=== PATIENT | female | born 1955 | race Caucasian/White ===

== ENCOUNTER 2020-01-21 15:33 | Inpatient (IN) | payer MEDICAID ==
[~2020-01-21] VITALS: Ht 172.7 cm; Wt 64.3 kg
[2020-01-21] MEDS: K and/or MAG REPLACEMENT MC SCH ×2 (06:00→08:00)
[~2020-01-21 15:33] MED LIST: BACL20TA84 PO
[2020-01-21 17:28] LABS: BASOPHILS % (AUTO) 0.3 % (0-1); EOSINOPHILS % (AUTO) 0.5 % (0-6); HEMATOCRIT 38.6 % (35.0-45.0); HEMOGLOBIN 12.7 g/dl (12.0-16.0); LYMPHOCYTES # (AUTO) 0.6 X10'3 (1.1-4.8); LYMPHOCYTES % (AUTO) 13.9 % (21-51); MEAN CORPUSCULAR HEMOGLOBIN 34.5 PG (27.0-31.0); MEAN CORPUSCULAR HGB CONC 32.9 g/dL (33.0-36.5); MEAN CORPUSCULAR VOLUME 104.8 FL (78-98); MEAN PLATELET VOLUME 8.8 FL (7.4-10.4); MONOCYTES # (AUTO) 0.3 X10'3 (0-0.9); MONOCYTES % (AUTO) 7.8 % (2-12); NEUTROPHILS # (AUTO) 3.2 X10'3 (1.8-7.7); NEUTROPHILS % (AUTO) 77.5 % (42-75); PARTIAL THROMBOPLASTIN TIME 30 SECONDS (22-32); PLATELET COUNT 82 X10'3 (140-440); RED BLOOD COUNT 3.69 X10'6 (4.20-5.60); RED CELL DISTRIBUTION WIDTH 14.2 % (11.5-14.5); WHITE BLOOD COUNT 4.1 X10'3 (4.5-11.0)
[2020-01-21 17:45] LABS: ALANINE AMINOTRANSFERASE 20 U/L (12-78); ALBUMIN 2.8 G/DL (3.4-5.0); ALBUMIN/GLOBULIN RATIO 0.8 (1.1-1.5); ALKALINE PHOSPHATASE 85 IU/L (46-116); ANION GAP 3 (8-16); ASPARTATE AMINO TRANSFERASE 36 U/L (10-37); BILIRUBIN,TOTAL 0.6 MG/DL (0.1-1.0); BLOOD UREA NITROGEN 5 MG/DL (7-18); BUN/CREATININE RATIO 6.6 (6.6-38.0); CALCIUM 7.8 MG/DL (8.5-10.1); CHLORIDE 88 MMOL/L (99-107); CREATININE 0.76 MG/DL (0.40-0.90); GLUCOSE 99 MG/DL (70-104); POTASSIUM 3.5 MMOL/L (3.5-5.1); SODIUM 126 MMOL/L (135-145); TOTAL CARBON DIOXIDE 35.3 MMOL/L (24-32); TOTAL PROTEIN 6.1 G/DL (6.4-8.2); eGFR 77 ML/MIN
--- NOTE | 2020-01-21 18:24 | NUR ---
pt in fast track for vascular study.
--- NOTE | 2020-01-21 19:00 | NUR ---
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
--- NOTE | 2020-01-21 19:20 | NUR ---
pt daughter leave phone no lft to call if pt is d/c home call [phone] michael.
[2020-01-21] MEDS ORDERED: HYDR200T84 PO (22:06)
[2020-01-21] MEDS ORDERED: TIOT4MIS2 (22:06)
[2020-01-21] MEDS ORDERED: DOXE10CA3 PO (22:06)
[2020-01-21] MEDS ORDERED: ALBU2.5V13 INH (22:06)
[2020-01-21] MEDS ORDERED: PROP40TA72 PO (22:06)
[2020-01-21] MEDS ORDERED: magnesium hydroxide 30ml (MOM) UD suspension PO PRN (22:40)
[2020-01-21] MEDS ORDERED: ondansetron/PF 4mg/2ml inj IV PRN (22:40)
[2020-01-21] MEDS ORDERED: mag hydrox/Alum hydrox/simeth 30ml oral suspension PO PRN (22:40)
[2020-01-21] MEDS ORDERED: potassium CL 10mEq/100ml bag 100 ML IV PRN (22:45)
[2020-01-21] MEDS ORDERED: potassium Cl 20 mEq SR tablet PO PRN (22:45)
[2020-01-21] MEDS ORDERED: magnesium 4gm in 100ml NS 100 ML IV PRN (22:45)
[2020-01-21 23:17] LABS: HEMOGLOBIN A1C 5.6 % (4.5-6.2)
--- NOTE | 2020-01-21 23:29 | NUR ---
Patient in room ED HALL10. I have received report from NET LEAD ARCHITECT and had the opportunity to ask questions and assume patient care.
[2020-01-21 23:45] VITALS: BP 160/75
--- NOTE | 2020-01-22 00:07 | NUR ---
pt complaining of SOB, Jaja ordered albuterol breathing treatments and if pt symptoms are unrelieved to give lasix am dose early.
[2020-01-22] MEDS: albuterol 2.5 MG/3 ML nebule NEB PRN ×3 (00:21→09:24)
[2020-01-22 02:00] VITALS: BP 151/75
[2020-01-22 06:00] VITALS: BP 115/64
--- NOTE | 2020-01-22 06:30 | NUR ---
Patient in room MED 312. I have received report from Kathy ROGERS and had the opportunity to ask questions and assume patient care.
[2020-01-22 06:32] LABS: BASOPHILS % (AUTO) 0.2 % (0-1); EOSINOPHILS % (AUTO) 0.6 % (0-6); HEMATOCRIT 42.2 % (35.0-45.0); HEMOGLOBIN 13.5 g/dl (12.0-16.0); LYMPHOCYTES # (AUTO) 0.7 X10'3 (1.1-4.8); LYMPHOCYTES % (AUTO) 12.4 % (21-51); MEAN CORPUSCULAR HEMOGLOBIN 34.3 PG (27.0-31.0); MEAN CORPUSCULAR VOLUME 107.2 FL (78-98); MEAN PLATELET VOLUME 9.3 FL (7.4-10.4); MONOCYTES # (AUTO) 0.3 X10'3 (0-0.9); MONOCYTES % (AUTO) 4.8 % (2-12); NEUTROPHILS # (AUTO) 4.4 X10'3 (1.8-7.7); PLATELET COUNT 69 X10'3 (140-440); RED BLOOD COUNT 3.94 X10'6 (4.20-5.60); RED CELL DISTRIBUTION WIDTH 13.8 % (11.5-14.5); WHITE BLOOD COUNT 5.3 X10'3 (4.5-11.0)
[2020-01-22 06:38] LABS: ALANINE AMINOTRANSFERASE 20 U/L (12-78); ALBUMIN 2.8 G/DL (3.4-5.0); ALBUMIN/GLOBULIN RATIO 0.8 (1.1-1.5); ALKALINE PHOSPHATASE 82 IU/L (46-116); ANION GAP 7 (8-16); ASPARTATE AMINO TRANSFERASE 35 U/L (10-37); BILIRUBIN,TOTAL 0.6 MG/DL (0.1-1.0); BLOOD UREA NITROGEN 5 MG/DL (7-18); BUN/CREATININE RATIO 8.2 (6.6-38.0); CALCIUM 7.7 MG/DL (8.5-10.1); CHLORIDE 91 MMOL/L (99-107); CREATININE 0.61 MG/DL (0.40-0.90); GLUCOSE 93 MG/DL (70-104); POTASSIUM 3.3 MMOL/L (3.5-5.1); SODIUM 132 MMOL/L (135-145); TOTAL CARBON DIOXIDE 34.4 MMOL/L (24-32); TOTAL PROTEIN 6.3 G/DL (6.4-8.2); eGFR > 90 ML/MIN
--- NOTE | 2020-01-22 06:45 | NUR ---
Problems reprioritized. Patient report given, questions answered & plan of care reviewed with MALIK ROGERS.
[2020-01-22 06:49] LABS: CHOL/HDL RATIO 2.2 (0.00-4.99); CHOLESTEROL 82 MG/DL (0-200); HDL CHOLESTEROL 37 MG/DL (35-60); LDL CHOLESTEROL 28 MG/DL (50-100); MAGNESIUM 1.6 MG/DL (1.5-2.4); TRIGLYCERIDES 81 MG/DL (20-135)
[2020-01-22] MEDS ORDERED: furosemide 20 MG/2 ML vial IV SCH (08:00)
[2020-01-22] MEDS ORDERED: heparin, porcine 5000 units/ml vial SQ SCH (08:00)
[2020-01-22] MEDS: K and/or MAG REPLACEMENT MC SCH ×2 (08:00→20:00)
[2020-01-22] MEDS: carVEDilol 3.125mg tablet PO SCH ×2 (08:00→20:54)
[2020-01-22 11:00] VITALS: BP 149/71
[2020-01-22] MEDS: albuterol 2.5 MG/3 ML nebule NEB SCH ×4 (13:34→23:17)
[2020-01-22 15:00] VITALS: BP 117/68
[2020-01-22] MEDS: potassium Cl 20 mEq SR tablet PO PRN ×2 (15:08→20:53)
[2020-01-22 18:00] VITALS: BP 142/80
--- NOTE | 2020-01-22 18:25 | NUR ---
Patient in room MED 312. I have received report from MALIK ROGERS and had the opportunity to ask questions and assume patient care.
[2020-01-22] MEDS: acetaminophen 325mg tablet PO PRN (20:53)
[2020-01-22] MEDS: hydroxychloroquine 200mg tablet PO SCH (20:54)
[2020-01-22] MEDS: doxepin 10mg capsule PO SCH (20:55)
[2020-01-22] MEDS: furosemide 40mg/4ml inj IV SCH (20:55)
[2020-01-22 22:39] VITALS: BP 104/57
[2020-01-23 02:45] VITALS: BP 107/57
[2020-01-23 03:09] LABS: BASOPHILS % (AUTO) 0.3 % (0-1); EOSINOPHILS % (AUTO) 1.3 % (0-6); HEMOGLOBIN 12.3 g/dl (12.0-16.0); LYMPHOCYTES # (AUTO) 0.7 X10'3 (1.1-4.8); LYMPHOCYTES % (AUTO) 20.4 % (21-51); MEAN CORPUSCULAR HEMOGLOBIN 34.2 PG (27.0-31.0); MEAN CORPUSCULAR HGB CONC 32.4 g/dL (33.0-36.5); MEAN CORPUSCULAR VOLUME 105.7 FL (78-98); MEAN PLATELET VOLUME 9.3 FL (7.4-10.4); MONOCYTES # (AUTO) 0.2 X10'3 (0-0.9); MONOCYTES % (AUTO) 4.8 % (2-12); NEUTROPHILS # (AUTO) 2.5 X10'3 (1.8-7.7); NEUTROPHILS % (AUTO) 73.2 % (42-75); PLATELET COUNT 65 X10'3 (140-440); RED BLOOD COUNT 3.59 X10'6 (4.20-5.60); RED CELL DISTRIBUTION WIDTH 14.3 % (11.5-14.5); WHITE BLOOD COUNT 3.4 X10'3 (4.5-11.0)
[2020-01-23 03:30] LABS: ALANINE AMINOTRANSFERASE 20 U/L (12-78); ALBUMIN 2.6 G/DL (3.4-5.0); ALBUMIN/GLOBULIN RATIO 0.8 (1.1-1.5); ALKALINE PHOSPHATASE 72 IU/L (46-116); ANION GAP 2 (8-16); ASPARTATE AMINO TRANSFERASE 32 U/L (10-37); BILIRUBIN,TOTAL 0.5 MG/DL (0.1-1.0); BLOOD UREA NITROGEN 4 MG/DL (7-18); BUN/CREATININE RATIO 5.2 (6.6-38.0); CALCIUM 7.6 MG/DL (8.5-10.1); CHLORIDE 96 MMOL/L (99-107); CREATININE 0.77 MG/DL (0.40-0.90); GLUCOSE 91 MG/DL (70-104); MAGNESIUM 1.2 MG/DL (1.5-2.4); POTASSIUM 3.5 MMOL/L (3.5-5.1); SODIUM 139 MMOL/L (135-145); TOTAL PROTEIN 5.9 G/DL (6.4-8.2); eGFR 76 ML/MIN
--- NOTE | 2020-01-23 03:39 | NUR ---
RENE JAFFE "PAGER ID: [phone] MESSAGE: PT MAYNOR HAD A CRITICAL CO2 OF 41"
[2020-01-23] MEDS: albuterol 2.5 MG/3 ML nebule NEB SCH ×6 (03:47→23:33)
[2020-01-23 06:00] VITALS: BP 123/52
--- NOTE | 2020-01-23 06:20 | NUR ---
Problems reprioritized. Patient report given, questions answered & plan of care reviewed with MALIK ROGERS.
[2020-01-23] MEDS ORDERED: PROPRANOLOL HCL 40 MG PO SCH (08:00)
[2020-01-23] MEDS: carVEDilol 3.125mg tablet PO SCH ×2 (08:39→20:39)
[2020-01-23] MEDS: aspirin 81mg tablet.DR PO SCH (08:40)
[2020-01-23] MEDS: lisinopril 5mg tablet PO SCH (08:40)
[2020-01-23] MEDS: hydroxychloroquine 200mg tablet PO SCH ×2 (08:40→20:40)
[2020-01-23] MEDS: magnesium Cl slow-release 64mg tablet PO PRN (08:41)
[2020-01-23] MEDS: furosemide 40mg/4ml inj IV SCH ×2 (08:43→20:39)
[2020-01-23] MEDS: K and/or MAG REPLACEMENT MC SCH ×2 (08:48→20:00)
[2020-01-23 10:00] VITALS: BP 119/59
[2020-01-23] MEDS ORDERED: thiamine inj. 100 MG in normal saline 100ml IV soln 100 ML IV ONE (11:45)
--- NOTE | 2020-01-23 14:59 | NUR ---
NOTIFIED PAGER ID: [phone] MESSAGE: [phone] ÁNGEL MCGUIRE. ABDOMENAL ULTRASOUND HAS RESULTED. OKAY TO FEED PATIENT? EXT [id number]
[2020-01-23 15:00] VITALS: BP 114/56
[2020-01-23 18:00] VITALS: BP 117/50
--- NOTE | 2020-01-23 19:03 | NUR ---
Patient in room MED 312. I have received report from Heather ROGERS and had the opportunity to ask questions and assume patient care.
[2020-01-23] MEDS: doxepin 10mg capsule PO SCH (20:39)
[2020-01-23 22:00] VITALS: BP 105/58
[2020-01-24] MEDS: magnesium Cl slow-release 64mg tablet PO PRN ×3 (00:16→20:42)
[2020-01-24 02:00] VITALS: BP 122/61
[2020-01-24] MEDS: albuterol 2.5 MG/3 ML nebule NEB SCH ×6 (03:03→23:23)
[2020-01-24 05:24] LABS: BASOPHILS % (AUTO) 0.3 % (0-1); EOSINOPHILS # (AUTO) 0.1 X10'3 (0-0.9); EOSINOPHILS % (AUTO) 2.3 % (0-6); HEMATOCRIT 35.1 % (35.0-45.0); HEMOGLOBIN 11.4 g/dl (12.0-16.0); LYMPHOCYTES # (AUTO) 0.8 X10'3 (1.1-4.8); LYMPHOCYTES % (AUTO) 22.2 % (21-51); MEAN CORPUSCULAR HEMOGLOBIN 34.3 PG (27.0-31.0); MEAN CORPUSCULAR HGB CONC 32.4 g/dL (33.0-36.5); MEAN CORPUSCULAR VOLUME 106.1 FL (78-98); MEAN PLATELET VOLUME 9.2 FL (7.4-10.4); MONOCYTES # (AUTO) 0.3 X10'3 (0-0.9); MONOCYTES % (AUTO) 8.1 % (2-12); NEUTROPHILS # (AUTO) 2.4 X10'3 (1.8-7.7); NEUTROPHILS % (AUTO) 67.1 % (42-75); PLATELET COUNT 68 X10'3 (140-440); RED BLOOD COUNT 3.31 X10'6 (4.20-5.60); RED CELL DISTRIBUTION WIDTH 14.3 % (11.5-14.5); WHITE BLOOD COUNT 3.6 X10'3 (4.5-11.0)
[2020-01-24 05:39] LABS: ALANINE AMINOTRANSFERASE 15 U/L (12-78); ALBUMIN 2.4 G/DL (3.4-5.0); ALBUMIN/GLOBULIN RATIO 0.8 (1.1-1.5); ALKALINE PHOSPHATASE 61 IU/L (46-116); AMYLASE 42 U/L (25-115); ASPARTATE AMINO TRANSFERASE 27 U/L (10-37); BILIRUBIN,TOTAL 0.5 MG/DL (0.1-1.0); BLOOD UREA NITROGEN 7 MG/DL (7-18); BUN/CREATININE RATIO 9.1 (6.6-38.0); CALCIUM 7.8 MG/DL (8.5-10.1); CHLORIDE 97 MMOL/L (99-107); CREATININE 0.77 MG/DL (0.40-0.90); GLUCOSE 94 MG/DL (70-104); LIPASE 128 U/L (73-393); MAGNESIUM 1.1 MG/DL (1.5-2.4); PHOSPHORUS 3.1 MG/DL (2.3-4.5); POTASSIUM 3.5 MMOL/L (3.5-5.1); SODIUM 142 MMOL/L (135-145); TOTAL PROTEIN 5.6 G/DL (6.4-8.2); eGFR 76 ML/MIN
[2020-01-24 05:52] LABS: ANION GAP -1 (8-16)
[2020-01-24 05:56] LABS: TOTAL CARBON DIOXIDE 45.6 MMOL/L (24-32)
[2020-01-24 06:00] VITALS: BP 103/53
--- NOTE | 2020-01-24 07:45 | NUR ---
Problems reprioritized. Patient report given, questions answered & plan of care reviewed with Heather ROGERS.
[2020-01-24] MEDS ORDERED: folic acid inj. 2 MG, thiamine inj. 100 MG, MVI, adult No.4 with vit. K 10 ML in dextro... IV SCH ×4 (08:00)
[2020-01-24] MEDS: K and/or MAG REPLACEMENT MC SCH ×2 (08:00→20:54)
[2020-01-24] MEDS: carVEDilol 3.125mg tablet PO SCH ×2 (08:20→20:42)
[2020-01-24] MEDS: furosemide 40mg/4ml inj IV SCH ×2 (08:21→20:41)
[2020-01-24] MEDS: hydroxychloroquine 200mg tablet PO SCH ×2 (08:21→20:42)
[2020-01-24] MEDS: aspirin 81mg tablet.DR PO SCH (08:21)
[2020-01-24] MEDS: lisinopril 5mg tablet PO SCH (08:21)
--- NOTE | 2020-01-24 08:51 | NUR ---
Patient refused IV magnesium (1.2) She wants pills
[2020-01-24 11:00] VITALS: BP 93/55
[2020-01-24] MEDS: folic acid 1mg tablet PO SCH (11:12)
[2020-01-24] MEDS: thiamine 100mg tablet PO SCH (11:13)
[2020-01-24 15:00] VITALS: BP 96/56
[2020-01-24 18:00] VITALS: BP 123/57
--- NOTE | 2020-01-24 18:00 | NUR ---
Patient in room MED 312. I have received report from Heather ROGERS and had the opportunity to ask questions and assume patient care.
--- NOTE | 2020-01-24 18:40 | NUR ---
Problems reprioritized. Patient report given, questions answered & plan of care reviewed with Gwen ROGERS.
[2020-01-24] MEDS: doxepin 10mg capsule PO SCH (20:42)
[2020-01-24 22:00] VITALS: BP 125/54
[2020-01-24] MEDS: acetaminophen 325mg tablet PO PRN (22:42)
[2020-01-25 02:00] VITALS: BP 88/49
[2020-01-25] MEDS: albuterol 2.5 MG/3 ML nebule NEB SCH ×6 (03:32→23:09)
[2020-01-25 05:12] LABS: BASOPHILS % (AUTO) 0.2 % (0-1); EOSINOPHILS # (AUTO) 0.1 X10'3 (0-0.9); EOSINOPHILS % (AUTO) 3.1 % (0-6); HEMATOCRIT 35.4 % (35.0-45.0); HEMOGLOBIN 11.4 g/dl (12.0-16.0); LYMPHOCYTES # (AUTO) 0.9 X10'3 (1.1-4.8); LYMPHOCYTES % (AUTO) 26.4 % (21-51); MEAN CORPUSCULAR HEMOGLOBIN 34.2 PG (27.0-31.0); MEAN CORPUSCULAR HGB CONC 32.3 g/dL (33.0-36.5); MEAN CORPUSCULAR VOLUME 105.8 FL (78-98); MEAN PLATELET VOLUME 8.5 FL (7.4-10.4); MONOCYTES # (AUTO) 0.3 X10'3 (0-0.9); MONOCYTES % (AUTO) 8.1 % (2-12); NEUTROPHILS # (AUTO) 2.2 X10'3 (1.8-7.7); NEUTROPHILS % (AUTO) 62.2 % (42-75); PLATELET COUNT 72 X10'3 (140-440); RED BLOOD COUNT 3.34 X10'6 (4.20-5.60); RED CELL DISTRIBUTION WIDTH 14.6 % (11.5-14.5); WHITE BLOOD COUNT 3.5 X10'3 (4.5-11.0)
[2020-01-25 05:52] LABS: ALANINE AMINOTRANSFERASE 15 U/L (12-78); ALBUMIN 2.4 G/DL (3.4-5.0); ALBUMIN/GLOBULIN RATIO 0.7 (1.1-1.5); ALKALINE PHOSPHATASE 56 IU/L (46-116); AMYLASE 44 U/L (25-115); ASPARTATE AMINO TRANSFERASE 21 U/L (10-37); BILIRUBIN,TOTAL 0.5 MG/DL (0.1-1.0); BLOOD UREA NITROGEN 8 MG/DL (7-18); BUN/CREATININE RATIO 11.9 (6.6-38.0); CALCIUM 7.7 MG/DL (8.5-10.1); CHLORIDE 96 MMOL/L (99-107); CREATININE 0.67 MG/DL (0.40-0.90); GLUCOSE 104 MG/DL (70-104); LIPASE 95 U/L (73-393); MAGNESIUM 1.3 MG/DL (1.5-2.4); PHOSPHORUS 3.5 MG/DL (2.3-4.5); POTASSIUM 3.3 MMOL/L (3.5-5.1); SODIUM 142 MMOL/L (135-145); TOTAL PROTEIN 5.7 G/DL (6.4-8.2); eGFR 89 ML/MIN
[2020-01-25 06:00] VITALS: BP 139/67
[2020-01-25 06:06] LABS: ANION GAP 2 (8-16)
[2020-01-25 06:10] LABS: TOTAL CARBON DIOXIDE 44.4 MMOL/L (24-32)
--- NOTE | 2020-01-25 07:02 | NUR ---
Patient in room MED 312. I have received report from SUE Hidalgo and had the opportunity to ask questions and assume patient care.
[2020-01-25] MEDS ORDERED: thiamine 100mg tablet PO SCH (08:00)
[2020-01-25] MEDS ORDERED: folic acid 1mg tablet PO SCH (08:00)
[2020-01-25] MEDS: K and/or MAG REPLACEMENT MC SCH ×2 (08:29→20:38)
[2020-01-25] MEDS: carVEDilol 3.125mg tablet PO SCH ×2 (08:34→20:35)
[2020-01-25] MEDS: aspirin 81mg tablet.DR PO SCH (08:34)
[2020-01-25] MEDS: multivitamins, therapeutics tablet PO SCH (08:35)
[2020-01-25] MEDS: folic acid 1mg tablet PO SCH (08:35)
[2020-01-25] MEDS: thiamine 100mg tablet PO SCH (08:35)
[2020-01-25] MEDS: hydroxychloroquine 200mg tablet PO SCH ×2 (08:35→20:35)
[2020-01-25] MEDS: lisinopril 5mg tablet PO SCH (08:35)
--- NOTE | 2020-01-25 09:52 | NUR ---
SPOKE WITH PHARMACIST, OKAY WITH PLT 72 DUE TO HCT >35. CONFIRMED THAT THERE IS NO EVIDENCE OF CLOTS BASED ON PREVIOUS IMAGES.
--- NOTE | 2020-01-25 09:53 | NUR ---
RECEIVED VERBAL ORDER FROM DR. EDUARDO TO START ON HEP GTT FOR DVT PROTOCOL
[2020-01-25 10:00] VITALS: BP 113/66
[2020-01-25] MEDS ORDERED: heparin 25,000 UNIT/250ml bag 250 ML IV SCH (13:05)
[2020-01-25] MEDS ORDERED: heparin 10,000 units/1 ML INJ IV PRN (13:05)
[2020-01-25] MEDS ORDERED: heparin 10,000 units/1 ML INJ IV ONE ×2 (13:05→16:45)
[2020-01-25] MEDS ORDERED: iohexol 350MG/ML 100ml bottle IV ONE (14:12)
[2020-01-25] MEDS ORDERED: iohexol 350 MG/ML 50ML vial IV ONE (14:12)
[2020-01-25 15:00] VITALS: BP 122/59
[2020-01-25] MEDS ORDERED: potassium Cl 20 mEq SR tablet PO PRN ×2 (16:25→18:40)
[2020-01-25] MEDS ORDERED: K and/or MAG REPLACEMENT MC SCH (16:25)
--- NOTE | 2020-01-25 17:55 | NUR ---
Patient in room MED 312. I have received report from Lauren ROGERS and had the opportunity to ask questions and assume patient care.
[2020-01-25 18:00] VITALS: BP 130/50
--- NOTE | 2020-01-25 18:31 | NUR ---
Problems reprioritized. Patient report given, questions answered & plan of care reviewed with maritza henriquez.
[2020-01-25] MEDS ORDERED: potassium CL 10mEq/100ml bag 100 ML IV PRN (18:40)
[2020-01-25] MEDS: doxepin 10mg capsule PO SCH (20:35)
[2020-01-25] MEDS: potassium Cl 20 mEq SR tablet PO PRN (20:36)
[2020-01-25] MEDS: magnesium Cl slow-release 64mg tablet PO PRN (20:36)
[2020-01-25 22:00] VITALS: BP 106/63
--- NOTE | 2020-01-26 00:21 | NUR ---
PATIENT HAS NOT QUALIFIED FOR HYPO/HYPERGLYCEMIA PROTOCOL IN 2 DAYS- WILL REQUEST DC IN AM AIC 5.6 ON ADMISSION SAUMYA ROGERS
--- NOTE | 2020-01-26 00:25 | NUR ---
PATIENT REFUSED ACCUCHECK Addendum: 01/26/20 at 0025 by Gwen Reynolds RN Amended: Links added.
[2020-01-26 00:26] VITALS: BP 106/63
[2020-01-26 02:00] VITALS: BP 115/57
--- NOTE | 2020-01-26 02:00 | NUR ---
PATIENT VOIDED, HAD BRIGHT RED FRITZ BLOOD AND STOOL NOTED Addendum: 01/26/20 at 0614 by Gwen Reynolds RN MD [facility]
[2020-01-26] MEDS: albuterol 2.5 MG/3 ML nebule NEB SCH ×6 (03:07→23:41)
--- NOTE | 2020-01-26 05:58 | NUR ---
Problems reprioritized. Patient report given, questions answered & plan of care reviewed with EZ ROGERS.
[2020-01-26 06:00] VITALS: BP 114/60
--- NOTE | 2020-01-26 06:29 | NUR ---
Patient in room MED 312. I have received report from SUE Hidalgo and had the opportunity to ask questions and assume patient care.
[2020-01-26 07:08] LABS: BASOPHILS % (AUTO) 0.5 % (0-1); EOSINOPHILS # (AUTO) 0.1 X10'3 (0-0.9); EOSINOPHILS % (AUTO) 2.7 % (0-6); HEMATOCRIT 33.6 % (35.0-45.0); HEMOGLOBIN 10.8 g/dl (12.0-16.0); LYMPHOCYTES # (AUTO) 0.7 X10'3 (1.1-4.8); MEAN CORPUSCULAR HEMOGLOBIN 34.1 PG (27.0-31.0); MEAN CORPUSCULAR HGB CONC 32.1 g/dL (33.0-36.5); MEAN CORPUSCULAR VOLUME 106.4 FL (78-98); MEAN PLATELET VOLUME 9.2 FL (7.4-10.4); MONOCYTES # (AUTO) 0.4 X10'3 (0-0.9); MONOCYTES % (AUTO) 8.9 % (2-12); NEUTROPHILS # (AUTO) 3.1 X10'3 (1.8-7.7); NEUTROPHILS % (AUTO) 70.9 % (42-75); PLATELET COUNT 64 X10'3 (140-440); RED BLOOD COUNT 3.15 X10'6 (4.20-5.60); RED CELL DISTRIBUTION WIDTH 14.3 % (11.5-14.5); WHITE BLOOD COUNT 4.3 X10'3 (4.5-11.0)
[2020-01-26 07:16] LABS: ALANINE AMINOTRANSFERASE 11 U/L (12-78); ALBUMIN 2.2 G/DL (3.4-5.0); ALBUMIN/GLOBULIN RATIO 0.6 (1.1-1.5); ALKALINE PHOSPHATASE 54 IU/L (46-116); AMYLASE 43 U/L (25-115); ANION GAP 1 (8-16); ASPARTATE AMINO TRANSFERASE 20 U/L (10-37); BILIRUBIN,TOTAL 0.5 MG/DL (0.1-1.0); BLOOD UREA NITROGEN 7 MG/DL (7-18); BUN/CREATININE RATIO 12.7 (6.6-38.0); CHLORIDE 96 MMOL/L (99-107); CREATININE 0.55 MG/DL (0.40-0.90); GLUCOSE 96 MG/DL (70-104); LIPASE 67 U/L (73-393); MAGNESIUM 1.6 MG/DL (1.5-2.4); PHOSPHORUS 4.4 MG/DL (2.3-4.5); POTASSIUM 3.1 MMOL/L (3.5-5.1); SODIUM 137 MMOL/L (135-145); TOTAL PROTEIN 5.6 G/DL (6.4-8.2); eGFR > 90 ML/MIN
[2020-01-26 07:17] LABS: TOTAL CARBON DIOXIDE 40.3 MMOL/L (24-32)
[2020-01-26] MEDS: folic acid 1mg tablet PO SCH (08:35)
[2020-01-26] MEDS: hydroxychloroquine 200mg tablet PO SCH ×2 (08:36→20:04)
[2020-01-26] MEDS: multivitamins, therapeutics tablet PO SCH (08:36)
[2020-01-26] MEDS: carVEDilol 3.125mg tablet PO SCH ×2 (08:36→20:04)
[2020-01-26] MEDS: lisinopril 5mg tablet PO SCH (08:36)
[2020-01-26] MEDS: thiamine 100mg tablet PO SCH (08:36)
[2020-01-26] MEDS: aspirin 81mg tablet.DR PO SCH (08:36)
[2020-01-26] MEDS: K and/or MAG REPLACEMENT MC SCH ×2 (08:40→20:10)
[2020-01-26] MEDS: magnesium Cl slow-release 64mg tablet PO PRN ×2 (08:43→20:04)
[2020-01-26] MEDS: potassium Cl 20 mEq SR tablet PO PRN ×2 (08:44→20:04)
[2020-01-26 10:00] VITALS: BP 110/56
--- NOTE | 2020-01-26 13:30 | NUR ---
notified of blood in urine,ordered hep gtt dc'd requested call to to to determine POC
--- NOTE | 2020-01-26 17:31 | NUR ---
received call from Dr. Murcia,requesting pt to f/u with his office on out pt basis, ok with him to discharge,Dr. perez notified
[2020-01-26 18:00] VITALS: BP 117/54
--- NOTE | 2020-01-26 18:36 | NUR ---
Patient in room MED 312. I have received report from Lauren ROGERS and had the opportunity to ask questions and assume patient care.
[2020-01-26] MEDS: doxepin 10mg capsule PO SCH (20:04)
[2020-01-26 22:00] VITALS: BP 116/66
[2020-01-27 02:00] VITALS: BP 117/54
[2020-01-27] MEDS: albuterol 2.5 MG/3 ML nebule NEB SCH ×3 (03:35→12:19)
--- NOTE | 2020-01-27 06:27 | NUR ---
Patient in room MED 312. I have received report from JOHANA ROGERS and had the opportunity to ask questions and assume patient care.
--- NOTE | 2020-01-27 06:27 | NUR ---
Problems reprioritized. Patient report given, questions answered & plan of care reviewed with Cristal ROGERS.
[2020-01-27 06:28] LABS: MAGNESIUM 1.8 MG/DL (1.5-2.4); PHOSPHORUS 4.6 MG/DL (2.3-4.5)
[2020-01-27 06:59] LABS: POTASSIUM 3.3 MMOL/L (3.5-5.1)
[2020-01-27 07:00] VITALS: BP 93/56
[2020-01-27] MEDS: carVEDilol 3.125mg tablet PO SCH (08:00)
[2020-01-27] MEDS: K and/or MAG REPLACEMENT MC SCH (08:00)
[2020-01-27] MEDS: lisinopril 5mg tablet PO SCH (08:00)
[2020-01-27] MEDS: thiamine 100mg tablet PO SCH (08:13)
[2020-01-27] MEDS: multivitamins, therapeutics tablet PO SCH (08:14)
[2020-01-27] MEDS: folic acid 1mg tablet PO SCH (08:14)
[2020-01-27] MEDS: aspirin 81mg tablet.DR PO SCH (08:14)
[2020-01-27] MEDS: potassium Cl 20 mEq SR tablet PO PRN (08:15)
[2020-01-27] MEDS: hydroxychloroquine 200mg tablet PO SCH (08:15)
[2020-01-27 11:00] VITALS: BP 102/57
--- NOTE | 2020-01-27 11:27 | NUR ---
O2 Sat at rest on room air:__83_% If below 89%: Recovery O2 Sat at rest on __3_LPM:___%:__92_% via nc (mask/nasal cannula, etc..) No further documentation is necessary. If O2 Sat did not drop below 89% on room air,ambulate patient on room air. O2 Sat while ambulating on room air:___% Recovery O2 Sat while ambulating on ___LPM:___% No further documentation is necessary. If patient does not drop below 89% while ambulating, he/she does not qualify for home O2.
[2020-01-27] MEDS ORDERED: COR3.125T PO (13:25)
[2020-01-27] MEDS ORDERED: ASPI-1071 PO (13:25)
[2020-01-27] MEDS ORDERED: PRED10TA23 PO (13:25)
[2020-01-27] MEDS ORDERED: LISI-642 PO (13:25)
[2020-01-27] MEDS ORDERED: ATOR20TA PO (13:25)
[2020-01-27 14:00] VITALS: BP 123/57
--- NOTE | 2020-01-27 15:36 | NUR ---
patient seen by Dr Gibbons is for discharge awaiting home O2. patient received o2 @ 1515, initially refusing to wear it for discharge. Staff explained to patient that she desats to 70"s when doesnt wear oxygen and for a safe discharge she needs to wear oxygen to car and in car. Patient escorted to car , staff explained to patient and her once again that she needs to wear oxygen in car to get home. Patient situated in car and insisted staff turn oxygen off. insisted also. Staff once again informed couple that patients oxygen would quickly decrease and side effects of this, but patient and insisted it stay off stated that they would be home in five mins.patient discharged home via private car with to home stable when patient sat in car at [facility].
== END 2020-01-27 15:30 | disposition home or self-care (01) | DRG 194 ==
LOC: ER 15:33 → UNDOADMIN 22:38 → ED HOLD 22:38 → MED 3N 23:55
PROVIDERS: ADMIT Internal Medicine; ATTEND Family Medicine
PROC: B42H1ZZ Computerized Tomography (CT Scan) of Bilateral Lower Extremity Arteries using Low Osmolar Contrast (ICD-10-PCS; principal; 2020-01-25)
DX: I50.33 Acute on chronic diastolic (congestive) heart failure (principal); D69.59 Other secondary thrombocytopenia; Z99.81 Dependence on supplemental oxygen; E87.1 Hypo-osmolality and hyponatremia; J44.1 Chronic obstructive pulmonary disease with (acute) exacerbation; I73.9 Peripheral vascular disease, unspecified; F10.239 Alcohol dependence with withdrawal, unspecified; E87.6 Hypokalemia; M06.9 Rheumatoid arthritis, unspecified; F32.9 Major depressive disorder, single episode, unspecified; Z79.899 Other long term (current) drug therapy
CPT/HCPCS: 36415; 71045; 73706; 76700; 80053; 80061; 82150; 82948; 83036; 83605; 83690; 83735; 83880; 84100; 84132; 84443; 84484; 85025; 85610; 85730; 87040; 87081; 93005; 93306; 93922; 93925; 94640; 94667; 94668; 94760; 97116; 97161; 97530; 99285; G0378; J1644; J1940; J3411; Q9967